=== PATIENT | female | born 1995 | race Caucasian/White ===

== ENCOUNTER 2016-07-24 22:49 | Emergency (ER) | payer BC, OTHER ==
[~2016-07-24] VITALS: Ht 162.6 cm; Wt 63.5 kg
[2016-07-24] MEDS ORDERED: NORE-71 PO (23:06)
[2016-07-24] MEDS ORDERED: CETI-267 PO (23:06)
[2016-07-24] MEDS ORDERED: EPIN0.3P3 SQ (23:06)
[2016-07-24] MEDS ORDERED: FAMO-119 PO (23:29)
[2016-07-24] MEDS ORDERED: PRD20T PO (23:29)
[2016-07-24] MEDS ORDERED: FAMOTIDINE 20 MG (PEPCID) TABLET PO ONE (23:30)
[2016-07-24] MEDS ORDERED: predniSONE 20 MG TAB PO ONE (23:30)
--- NOTE | 2016-07-24 23:31 | ED General ---
General Chief Complaint: Allergic Reaction Stated Complaint: POSS ALLERGIC REACTION Nursing Triage Note: possible allergic reaction Nursing Sepsis Screen: No Definite Risk Source of Information: Patient, Other (friend) Exam Limitations: No Limitations History of Present Illness Time Seen by Provider: 23:27 Initial Comments 29-year-old female patient presents to the emergency department complaints of a possible allergic reaction. Patient states she was given a chocolate shake from [employer] earlier tonight and did not realize this contained tree nuts. Patient states when she has tree nuts, she has swelling of the tongue/throat, itching, facial swelling. Patient did take 50 mg of Benadryl at home with improvement in symptoms. Patient does have an epinephrine pen but did not use this. Timing/Duration: 1 Hour, Other (improved) Modifying Factors: improves with Medication (improved with Benadryl) Allergies and Home Medications Allergies Uncoded Allergies: maltese chocolate (Allergy, Unknown, 07/24/16) Home Medications Cetirizine HCl 10 Mg Tab.rapdis 10 MG PO UD (Reported) Epinephrine 0.3 Mg/0.3 Ml Auto.injct #2 1 DIS.SYR SQ UD (Reported) Famotidine 20 Mg Tablet #20 20 MG PO BID Prescribed by: TARA HERNANDEZ on 07/24/162328 Norethindrone AC-Eth Estradiol 1 Each Tablet #63 1 TAB PO UD (Reported) Prednisone 20 Mg Tab #8 40 MG PO DAILY Prescribed by: TARA HERNANDEZ on 07/24/162328 Constitutional: no symptoms reported EENTM: see HPI throat swellingNo ear pain, No eye pain, No mouth pain, No mouth swelling, No nose congestion, No tearing, No throat pain Respiratory: No cough, No short of breath, No stridor, No wheezing Cardiovascular: no symptoms reported Gastrointestinal: No abdominal pain, No nausea, No vomiting Genitourinary: no symptoms reported Musculoskeletal: no symptoms reported Skin: No change in color, No pruritus, No rash Psychiatric/Neurological: Denies Headache Immunological/Allergic: see HPI food allergy All Other Systems Reviewed Negative Unless Noted: Yes (Negative excepted noted.) Past Yipkamv-Iolwcm-Egijxs Hx Patient Social History Alcohol Use: Denies Use Recreational Drug Use: No Smoking Status: Never a Smoker 2nd Hand Smoke Exposure: No Recent Foreign Travel: No Contact w/Someone Who Travel: No Recent Infectious Disease Expo: No Recent Hopitalizations: No Immunizations Up To Date Tetanus Booster (TDap): Unknown PED Vaccines UTD: Yes Seasonal Allergies Seasonal Allergies: Yes Surgeries HX Surgeries: No Respiratory Hx Respiratory Disorders: No Cardiovascular Hx Cardiac Disorders: No Neurological Hx Neurological Disorders: No Reproductive System : No Hx Reproductive Disorders: No Genitourinary Hx Genitourinary Disorders: No Gastrointestinal Hx Gastrointestinal Disorders: No Musculoskeletal Hx Musculoskeletal Disorders: No Endocrine Hx Endocrine Disorders: No HEENT HX ENT Disorders: No Cancer Hx Cancer: No Psychosocial Hx Psychiatric Problems: No Integumentary HX Skin/Integumentary Disorder: No Blood Transfusions Hx Blood Disorders: No Reviewed Nursing Assessment Reviewed/Agree w Nursing PMH: Yes Family Medical History Significant Family History: No Pertinent Family Hx Physical Exam Vital Signs Vital Sign - Last 12Hours 07/24/16 23:06 Temp 97.1 Pulse 81 Resp 16 B/P 145/92 Pulse Ox 99 O2 Delivery Room Air Capillary Refill : Less Than 3 Seconds General Appearance: No Apparent Distress WD/WN HEENT: PERRL/EOMI TMs Normal Normal ENT Inspection Pharynx Normal Neck: Normal Inspection Non Tender Supple Respiratory: Lungs Clear Normal Breath Sounds No Accessory Muscle Use No Respiratory Distress Cardiovascular: Regular Rate, Rhythm No Edema No Murmur Normal Peripheral Pulses Gastrointestinal: Non Tender SoftNo Distended Extremity: Normal Capillary Refill Normal Inspection Neurologic/Psychiatric: Alert Oriented x3 Normal Mood/Affect Skin: Normal Color Warm/DryNo Rash Progress/Results/Core Measures Results/Orders My Orders Orders-TARA HERNANDEZ Famotidine Tablet (Pepcid Tablet) (07/24/16 23:30) Prednisone Tablet (Deltasone Tablet) (07/24/16 23:30) Medications Given in ED Current Medications Medications Dose Ordered Sig/Neema Route Start Time Stop Time Status Last Admin Dose Admin Famotidine 20 mg ONCE ONCE PO 07/24/16 23:30 07/24/16 23:31 DC 07/24/16 23:33 20 MG Prednisone 40 mg ONCE ONCE PO 07/24/16 23:30 07/24/16 23:31 DC 07/24/16 23:32 40 MG Vital Signs/I&O Vital Sign - Last 12Hours 07/24/16 23:06 Temp 97.1 Pulse 81 Resp 16 B/P 145/92 Pulse Ox 99 O2 Delivery Room Air Blood Pressure Mean: 109 Departure Communication Progress Notes patient seen and evaluated. Plan for discharge to home with oral prednisone and Pepcid. All return precautions were discussed with the patient as described in the discharge instructions of this report. Patient voices understanding and agrees with the treatment plan. Impression Impression: Primary Impression: Food allergy Disposition: HOME, SELF-CARE Condition: Improved Departure-Patient Inst. Decision time for Depature: 23:28 Referrals: NO,LOCAL PHYSICIAN (PCP/Family) Primary Care Physician Patient Instructions: Food Allergy Add. Discharge Instructions: All discharge instructions reviewed with patient and/or family. Voiced understanding. medications as instructed. Benadryl [id number] as directed for breakthrough rash, itching, or swelling. Claritin, Zyrtec, or Hannah as instructed for symptoms. Avoid the offending agent. Follow-up with your family practitioner for recheck as an outpatient if needed. Epinephrine pen as instructed by your family practitioner. Return to the emergency department immediately for worsened swelling, rash, itching, headache, vomiting, shortness of air, difficulty swallowing, or any other concerns. Scripts Famotidine (Pepcid)20 Mg [id number] Mg PO BID #20 TAB Ref 0 Prov:TARA HERNANDEZ 07/24/16 Prednisone 20 Mg Tab40 Mg PO DAILY #8 TAB Ref 0 Prov:TARA HERNANDEZ 07/24/16 Work/School Note: Local [employer] Listing TARA HERNANDEZ Jul 24, 2016 23:31
[2016-07-24 23:37] VITALS: BP 137/89
== END 2016-07-24 23:37 | disposition home or self-care (01) ==
LOC: ER 22:52
DX: R22.0 Localized swelling, mass and lump, head (principal); T78.1XXA Other adverse food reactions, not elsewhere classified, initial encounter
CPT/HCPCS: 99282